=== PATIENT | female | born 1990 | race Caucasian/White ===

== ENCOUNTER 2018-08-26 14:23 | Emergency (ER) | payer SELFPAY ==
[2018-08-26 15:18] LABS: Absolute Lymphocytes (CBC) 1.8 K/uL (0.7-4.9); Absolute Monocytes 0.9 K/uL (0.1-1.3); Absolute Neutrophil 11.1 K/uL (1.8-8.0); Basophils % 0.3 % (0-1.3); Eosinophils % 1.8 % (0-4.4); Hematocrit 42.5 % (36.0-45.0); Lymphocytes % 12.9 % (15.3-44.8); MPV 8.7 fL (7.6-11.3); Monocytes % 6.1 % (3.3-12.3); RBC Red Blood Cell Count 4.95 M/uL (3.86-4.86)
[2018-08-26 15:28] LABS: Urine Blood NEGATIVE (NEG); Urine Glucose NEGATIVE (NEG); Urine Protein 1+ (NEG); Urine Specific Gravity 1.025 (1.005-1.030)
[2018-08-26 15:33] LABS: Potassium 3.6 mmol/L (3.5-5.1)
[2018-08-26] MEDS ORDERED: NA CHLORIDE 0.9% 1,000 ML ONE (15:42)
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
[2018-08-26] MEDS ORDERED: KETOROLAC 30 MG/ML INJ ONE (16:38)
== END 2018-08-26 17:13 | disposition home or self-care (01) ==
LOC: ER 14:23
DX: S30.0XXA Contusion of lower back and pelvis, initial encounter (principal); S20.222A Contusion of left back wall of thorax, initial encounter; S10.93XA Contusion of unspecified part of neck, initial encounter; J01.90 Acute sinusitis, unspecified; Y04.2XXA Assault by strike against or bumped into by another person, initial encounter; Y93.89 Activity, other specified; Y92.009 Unspecified place in unspecified non-institutional (private) residence as the place of occurrence of the external cause; Z72.0 Tobacco use
CPT/HCPCS: 36415; 70450; 70491; 71260; 74177; 80048; 81003; 81025; 85025; 86850; 86900; 86901; 96360; 96361; 99284; J7030; Q9967

== ENCOUNTER 2019-03-05 21:51 | Emergency (ER) | payer SELFPAY ==
[2019-03-05] MEDS ORDERED: NA CHLORIDE 0.9% 1,000 ML ONE (23:05)
[2019-03-05] MEDS ORDERED: PROMETHAZINE 25 MG/ML VIAL ONE (23:05)
[2019-03-05 23:14] LABS: Absolute Lymphocytes (CBC) 1.7 K/uL (0.7-4.9); Basophils % 0.4 % (0-1.3); Hematocrit 40.5 % (36.0-45.0); Lymphocytes % 25.6 % (15.3-44.8); MPV 9.4 fL (7.6-11.3); RBC Red Blood Cell Count 4.68 M/uL (3.86-4.86)
[2019-03-05 23:35] LABS: Bilirubin Direct 0.1 mg/dL (0-0.2); Bilirubin Total 0.3 mg/dL (0.2-1.0); Potassium 3.3 mmol/L (3.5-5.1); Protein, Total 7.7 g/dL (6.4-8.2)
[2019-03-06] MEDS ORDERED: ONDANSETRON 4 MG/2 ML VIAL ONE (00:15)
[2019-03-06 00:33] LABS: Urine Blood NEGATIVE (NEG); Urine Glucose NEGATIVE (NEG); Urine Protein NEGATIVE (NEG); Urine Specific Gravity 1.015 (1.005-1.030); Urine pH 5.5 (5.0-7.0)
[2019-03-06 00:46] LABS: Urine Bacteria 20-50 /HPF (<20); Urine Culture Reflex Order NOT NEEDED; Urine RBC NONE SEEN /HPF (NONE SEEN)
[2019-03-06] MEDS ORDERED: CEFTRIAXONE/SWI 1gm 1 GM/10 ML SYR ONE (00:58)
--- NOTE | 2019-03-06 01:05 | ER ---
Nurse's Notes [facility] Name: Mary Avina Age: 28 yrs Sex: Female : 1990 Arrival Date: 03/05/2019 Time: 21:54 Bed 24 Private MD: Diagnosis: Nausea and vomiting;Diarrhea, unspecified;Urinary tract infection, site not specified Presentation: 03/05 22:19 Presenting complaint: Patient states: Vomiting and diarrhea for the past 2 weeks that aj1 got worse today. Patient reports poor appetite. Reports cramping abdominal pain. Denies fever. Transition of care: patient was not received from another setting of care. Onset of symptoms was 2018. Risk Assessment: Do you want to hurt yourself or someone else? Patient reports no desire to harm self or others. Initial Sepsis Screen: Does the patient meet any 2 criteria? No. Patient's initial sepsis screen is negative. Does the patient have a suspected source of infection? No. Patient's initial sepsis screen is negative. Care prior to arrival: None. 22:19 Method Of Arrival: Ambulatory [facility] 22:19 Acuity: VIANNEY 3 aj1 Triage Assessment: 22:20 General: Appears in no apparent distress. comfortable, Behavior is calm, cooperative, aj1 appropriate for age. Pain: Complains of pain in abdomen. Neuro: Level of Consciousness is awake, alert, obeys commands. Cardiovascular: Patient's skin is warm and dry. Respiratory: Airway is patent Respiratory effort is even, unlabored, Respiratory pattern is regular, symmetrical. GI: Reports diarrhea, nausea, vomiting. 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 - Social history:: Smoking status: Patient uses tobacco products, smokes one-half pack cigarettes per day. - Ebola Screening: : Patient denies travel to an Ebola-affected area in the 21 days before illness onset. Screenin:00 Abuse screen: Denies threats or abuse. Denies injuries from another. Nutritional wh screening: No deficits noted. Tuberculosis screening: No symptoms or risk factors identified. Fall Risk None identified. Assessment: 23:00 General: Appears in no apparent distress. Behavior is calm, cooperative, appropriate wh for age. Pain: Complains of pain in suprapubic area Pain does not radiate. Pain currently is 3 out of 10 on a pain scale. Quality of pain is described as crampy, Pain began 2-3 days ago. Neuro: Level of Consciousness is awake, alert, obeys commands. Cardiovascular: Capillary refill < 3 seconds. Respiratory: Airway is patent Respiratory effort is even, unlabored, Respiratory pattern is regular, symmetrical. Respiratory: Breath sounds are clear bilaterally. GI: Abdomen is flat, non-distended, Bowel sounds present X 4 quads. Abd is soft and non tender X 4 quads. : No signs and/or symptoms were reported regarding the genitourinary system. EENT: No signs and/or symptoms were reported regarding the EENT system. Derm: Skin is intact, is healthy with good turgor, Skin is pink, warm \T\ dry. normal. Musculoskeletal: Circulation, motion, and sensation intact. 03/06 00:20 Reassessment: Patient appears in no apparent distress at this time. No changes from previously documented assessment. Patient and/or family updated on plan of care and expected duration. Pain level reassessed. Patient is alert, oriented x 3, equal unlabored respirations, skin warm/dry/pink. 01:44 Reassessment: Patient appears in no apparent distress at this time. No changes from previously documented assessment. Patient and/or family updated on plan of care and expected duration. Pain level reassessed. Patient is alert, oriented x 3, equal unlabored respirations, skin warm/dry/pink. Patient states feeling better. Patient states symptoms have improved. Vital Signs: 03/05 22:20 BP 114 / 81; Pulse 79; Resp 16; Temp 99.2; Pulse Ox 100% on R/A; Weight 56.7 kg (R); aj1 Height 5 ft. 3 in. (160.02 cm) (R); Pain 5/10; 23:00 BP 113 / 79; Pulse 71; Resp 15; Pulse Ox 100% on R/A; rv 03/06 00:00 BP 103 / 76; Pulse 74; Resp 15; Pulse Ox 100% on R/A; rv 01:00 BP 102 / 72; Pulse 72; Resp 14; Pulse Ox 100% on R/A; rv 03/05 22:20 Body Mass Index 22.14 (56.70 kg, 160.02 cm) [facility] ED Course: 03/05 21:54 Patient arrived in ED. mr 21:54 Ibis [facility]DASH [facility] snw 21:54 Emery Potts MD is Attending Physician. snw 22:20 Triage completed. aj 22:20 Arm band placed on Patient placed in an exam room. 1 22:30 Alexey Rodrigez, KRYSTINA is Primary Nurse. rv 23:00 Patient has correct armband on for positive identification. Bed in low position. Call light in reach. Side rails up X 1. Pulse ox on. NIBP on. 23:20 Inserted saline lock: 22 gauge in right antecubital area, using aseptic technique. Blood collected. 03/06 01:46 No provider procedures requiring assistance completed. IV discontinued, intact, bleeding controlled, No redness/swelling at site. Administered Medications: 03/05 23:30 Drug: Phenergan 12.5 mg Route: IVP; Site: right antecubital; 03/06 01:48 Follow up: Response: No adverse reaction; Nausea is decreased 03/05 23:31 Drug: NS 0.9% 1000 ml Route: IV; Rate: 1 bolus; Site: right antecubital; 03/06 01:48 Follow up: Response: No adverse reaction; IV Status: Completed infusion 00:28 Drug: Zofran 4 mg Route: IVP; Site: right antecubital; rv 01:47 Follow up: Response: No adverse reaction; Nausea is decreased 01:07 Drug: Rocephin 1 grams Route: IV; Rate: calculated rate; Site: right antecubital; 01:47 Follow up: Response: No adverse reaction; IV Status: Completed infusion Outcome: 01:03 Discharge ordered by . snw 01:46 Discharged to home ambulatory. 01:46 Condition: good 01:46 Discharge instructions given to patient, Instructed on discharge instructions, follow up and referral plans. medication usage, POC UTI, dehydration, nausea and vomiting Demonstrated understanding of instructions, follow-up care, medications, POC Prescriptions given X 3. 01:49 Patient left the ED. Signatures: Kaya Sheridan, RN RN aj1 Ibis Ojeda, POTATO SPOTTER-C POTATO SPOTTER-Csnw Jules Judie mr Esthela, Fernanda Alexey Rodrigez RN RN rv
--- NOTE | 2019-03-06 01:06 | EDPHYS ---
Physician Documentation [facility] Name: Mary Avina Age: 28 yrs Sex: Female : 1990 Arrival Date: 03/05/2019 Time: 21:54 Bed 24 Private MD: ED Physician Emery Potts HPI: 03/06 00:10 This 28 yrs old Female presents to ER via Ambulatory with complaints of snw Vomiting/Diarrhea. 00:10 The patient presents to the emergency department with nausea, vomiting, diarrhea. snw Onset: The symptoms/episode began/occurred suddenly, 2 day(s) ago, and became persistent. Possible causes: unknown. The symptoms are aggravated by nothing. The symptoms are alleviated by nothing. Associated signs and symptoms: Pertinent positives: abdominal pain, diarrhea, nausea, vomiting. Severity of symptoms: At their worst the symptoms were moderate severe. It is unknown whether or not the patient has had similar symptoms in the past. It is unknown whether or not the patient has recently seen a physician. 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 - Social history:: Smoking status: Patient uses tobacco products, smokes one-half pack cigarettes per day. - Ebola Screening: : Patient denies travel to an Ebola-affected area in the 21 days before illness onset. ROS: 03/06 00:10 Constitutional: Negative for fever, chills, and weight loss, Eyes: Negative for injury, snw pain, redness, and discharge, ENT: Negative for injury, pain, and discharge, Neck: Negative for injury, pain, and swelling, Cardiovascular: Negative for chest pain, palpitations, and edema, Respiratory: Negative for shortness of breath, cough, wheezing, and pleuritic chest pain, Abdomen/GI: Positive for abdominal pain, nausea, vomiting, diarrhea, No constipation, Back: Negative for injury and pain, : Negative for injury, bleeding, discharge, and swelling, MS/Extremity: Negative for injury and deformity, Skin: Negative for injury, rash, and discoloration, Neuro: Negative for headache, weakness, numbness, tingling, and seizure, Psych: Negative for depression, anxiety, suicide ideation, homicidal ideation, and hallucinations. Exam: 00:07 Constitutional: This is a well developed, well nourished patient who is awake, alert, snw and in no acute distress. Head/Face: Normocephalic, atraumatic. Eyes: Pupils equal round and reactive to light, extra-ocular motions intact. Lids and lashes normal. Conjunctiva and sclera are non-icteric and not injected. Cornea within normal limits. Periorbital areas with no swelling, redness, or edema. ENT: Nares patent. No nasal discharge, no septal abnormalities noted. Tympanic membranes are normal and external auditory canals are clear. Oropharynx with no redness, swelling, or masses, exudates, or evidence of obstruction, uvula midline. Mucous membranes moist. Neck: Trachea midline, no thyromegaly or masses palpated, and no cervical lymphadenopathy. Supple, full range of motion without nuchal rigidity, or vertebral point tenderness. No Meningismus. Chest/axilla: Normal chest wall appearance and motion. Nontender with no deformity. No lesions are appreciated. Cardiovascular: Regular rate and rhythm with a normal S1 and S2. No gallops, murmurs, or rubs. Normal PMI, no JVD. No pulse deficits. Respiratory: Lungs have equal breath sounds bilaterally, clear to auscultation and percussion. No rales, rhonchi or wheezes noted. No increased work of breathing, no retractions or nasal flaring. Abdomen/GI: Soft, mildly tender, with hyperactive bowel sounds. No distension or tympany. No guarding or rebound. Back: No spinal tenderness. No costovertebral tenderness. Full range of motion. Skin: Warm, dry with normal turgor. Normal color with no rashes, no lesions, and no evidence of cellulitis. MS/ Extremity: Pulses equal, no cyanosis. Neurovascular intact. Full, normal range of motion. Tenderness to bilateral knees with mild contusions Neuro: Awake and alert, GCS 15, oriented to person, place, time, and situation. Cranial nerves II-XII grossly intact. Motor strength 5/5 in all extremities. Sensory grossly intact. Cerebellar exam normal. Normal gait. Psych: Awake, alert, with orientation to person, place and time. Behavior, mood, and affect are within normal limits. Vital Signs: 03/05 22:20 BP 114 / 81; Pulse 79; Resp 16; Temp 99.2; Pulse Ox 100% on R/A; Weight 56.7 kg (R); aj1 Height 5 ft. 3 in. (160.02 cm) (R); Pain 5/10; 23:00 BP 113 / 79; Pulse 71; Resp 15; Pulse Ox 100% on R/A; rv 03/06 00:00 BP 103 / 76; Pulse 74; Resp 15; Pulse Ox 100% on R/A; rv 01:00 BP 102 / 72; Pulse 72; Resp 14; Pulse Ox 100% on R/A; rv 03/05 22:20 Body Mass Index 22.14 (56.70 kg, 160.02 cm) aj1 MDM: 03/05 22:26 Patient medically screened. snw 03/06 01:27 Data reviewed: vital signs, nurses notes. Data interpreted: Pulse oximetry: on room air snw is 100 %. Interpretation: normal. Counseling: I had a detailed discussion with the patient and/or guardian regarding: the historical points, exam findings, and any diagnostic results supporting the discharge/admit diagnosis, lab results, radiology results, the need for outpatient follow up, for definitive care, to return to the emergency department if symptoms worsen or persist or if there are any questions or concerns that arise at home. Response to treatment: the patient's symptoms have markedly improved after treatment. 03/05 22:35 Order name: Basic Metabolic Panel; Complete Time: 23:39 snw 03/05 22:35 Order name: CBC with Diff; Complete Time: 23:27 snw 03/05 22:35 Order name: Creatinine for Radiology; Complete Time: 23:48 snw 03/05 22:35 Order name: Hepatic Function; Complete Time: 23:39 snw 03/05 22:35 Order name: Lipase; Complete Time: 23:39 snw 03/05 22:35 Order name: Urine Culture snw 03/05 22:35 Order name: Urine Microscopic Only; Complete Time: 00:49 snw 03/06 00:19 Order name: Urine Dipstick--Ancillary (enter results) em1 03/06 00:19 Order name: Urine --Ancillary (enter results) em1 03/06 00:34 Order name: Urine --Ancillary EDMS 03/06 00:34 Order name: Urine Dipstick-Ancillary [facility] 03/05 22:35 Order name: Labs collected and sent; Complete Time: 23:31 snw 03/05 22:35 Order name: Urine Test (obtain specimen); Complete Time: 00:18 snw 03/05 22:35 Order name: Urine Dipstick-Ancillary (obtain specimen); Complete Time: 00:18 snw Administered Medications: 03/05 23:30 Drug: Phenergan 12.5 mg Route: IVP; Site: right antecubital; 03/06 01:48 Follow up: Response: No adverse reaction; Nausea is decreased 03/05 23:31 Drug: NS 0.9% 1000 ml Route: IV; Rate: 1 bolus; Site: right antecubital; 03/06 01:48 Follow up: Response: No adverse reaction; IV Status: Completed infusion 00:28 Drug: Zofran 4 mg Route: IVP; Site: right antecubital; 01:47 Follow up: Response: No adverse reaction; Nausea is decreased 01:07 Drug: Rocephin 1 grams Route: IV; Rate: calculated rate; Site: right antecubital; 01:47 Follow up: Response: No adverse reaction; IV Status: Completed infusion Disposition: 03/06/19 01:03 Discharged to Home. Impression: Nausea and vomiting, Diarrhea, unspecified, Urinary tract infection, site not specified. - Condition is Stable. - Discharge Instructions: Food Choices to Help Relieve Diarrhea, Adult, Diarrhea, Adult, Nausea and Vomiting, Adult, Urinary Tract Infection, Adult, Rehydration, Adult. - Prescriptions for Zofran 4 mg Oral Tablet - take 1 tablet by ORAL route every 12 hours As needed; 6 tablet. Macrobid 100 mg Oral Capsule - take 1 capsule by ORAL route every 12 hours for 10 days; 20 capsule. promethazine 25 mg Oral Tablet - take 1 tablet by ORAL route every 6 hours As needed; 20 tablet. - Work release form, Medication Reconciliation Form, Thank You Letter, Antibiotic Education, Prescription Opioid Use form. - Follow up: Private Physician; When: 2 - 3 days; Reason: Recheck today's complaints, Continuance of care, Re-evaluation by your physician. Follow up: Emergency Department; When: As needed; Reason: Worsening of condition. Signatures: Dispatcher [employer] EDMS Kaya Sheridan RN RN aj1 Ibis Ojeda, [employer]-C COMPUTER INSTALLER-Csnw Esthela Fernanda Alexey Blanco RN RN rv Corrections: (The following items were deleted from the chart) 00:09 00:07 Constitutional: This is a well developed, well nourished patient who is awake, snw alert, and in no acute distress. Head/Face: Normocephalic, atraumatic. Eyes: Pupils equal round and reactive to light, extra-ocular motions intact. Lids and lashes normal. Conjunctiva and sclera are non-icteric and not injected. Cornea within normal limits. Periorbital areas with no swelling, redness, or edema. ENT: Nares patent. No nasal discharge, no septal abnormalities noted. Tympanic membranes are normal and external auditory canals are clear. Oropharynx with no redness, swelling, or masses, exudates, or evidence of obstruction, uvula midline. Mucous membranes moist. Neck: Trachea midline, no thyromegaly or masses palpated, and no cervical lymphadenopathy. Supple, full range of motion without nuchal rigidity, or vertebral point tenderness. No Meningismus. Chest/axilla: Normal chest wall appearance and motion. Nontender with no deformity. No lesions are appreciated. Cardiovascular: Regular rate and rhythm with a normal S1 and S2. No gallops, murmurs, or rubs. Normal PMI, no JVD. No pulse deficits. Respiratory: Lungs have equal breath sounds bilaterally, clear to auscultation and percussion. No rales, rhonchi or wheezes noted. No increased work of breathing, no retractions or nasal flaring. Abdomen/GI: Soft, mildly tender, with hyperactive bowel sounds. No distension or tympany. No guarding or rebound. Back: No spinal tenderness. No costovertebral tenderness. Full range of motion. Skin: Warm, dry with normal turgor. Normal color with no rashes, no lesions, and no evidence of cellulitis. MS/ Extremity: Pulses equal, no cyanosis. Neurovascular intact. Full, normal range of motion. Neuro: Awake and alert, GCS 15, oriented to person, place, time, and situation. Cranial nerves II-XII grossly intact. Motor strength 5/5 in all extremities. Sensory grossly intact. Cerebellar exam normal. Normal gait. Psych: Awake, alert, with orientation to person, place and time. Behavior, mood, and affect are within normal limits. snw 00:15 00:10 Constitutional: Negative for fever, chills, and weight loss, Eyes: Negative for snw injury, pain, redness, and discharge, ENT: Negative for injury, pain, and discharge, Neck: Negative for injury, pain, and swelling, Cardiovascular: Negative for chest pain, palpitations, and edema, Respiratory: Negative for shortness of breath, cough, wheezing, and pleuritic chest pain, Abdomen/GI: Negative for abdominal pain, nausea, vomiting, diarrhea, and constipation, Back: Negative for injury and pain, : Negative for injury, bleeding, discharge, and swelling, Skin: Negative for injury, rash, and discoloration, Neuro: Negative for headache, weakness, numbness, tingling, and seizure, Psych: Negative for depression, anxiety, suicide ideation, homicidal ideation, and hallucinations, snw 00:15 00:10 MS/extremity: Positive for contusion, pain, of the bilateral knees, snw snw 01:49 01:03 03/06/2019 01:03 Discharged to Home. Impression: Nausea and vomiting; Diarrhea, wh unspecified; Urinary tract infection, site not specified. Condition is Stable. Forms are Medication Reconciliation Form, Thank You Letter, Antibiotic Education, Prescription Opioid Use. Follow up: Private Physician; When: 2 - 3 days; Reason: Recheck today's complaints, Continuance of care, Re-evaluation by your physician. Follow up: Emergency Department; When: As needed; Reason: Worsening of condition. snw
[2019-03-06 13:03] VITALS: TEMP 99.2; O2SAT 100
[2019-03-06 13:06] VITALS: BP 102/72
== END 2019-03-06 01:49 | disposition home or self-care (01) ==
LOC: ER 21:51
DX: R19.7 Diarrhea, unspecified (principal); N39.0 Urinary tract infection, site not specified; F17.210 Nicotine dependence, cigarettes, uncomplicated
CPT/HCPCS: 36415; 80048; 80076; 81003; 81015; 81025; 83690; 85025; 87086; 87088; 96361; 96365; 96375; 99284; J0696; J2405; J2550; J7030

== ENCOUNTER 2019-04-26 12:46 | Emergency (ER) | payer SELFPAY ==
[2019-04-26] MEDS ORDERED: IBUPROFEN 200 MG TAB PO ONE (13:43)
[2019-04-26] MEDS ORDERED: IBUPROFEN 400 MG TAB ONE (13:43)
--- NOTE | 2019-04-26 14:26 | EDPHYS ---
Physician Documentation [facility] Name: Mary Avina Age: 28 yrs Sex: Female : 1990 Arrival Date: 04/26/2019 Time: 12:48 Bed 15 Private MD: ED Physician Jeovany Laguna HPI: 04/26 14:25 This 28 yrs old Female presents to ER via Ambulatory with complaints of Flu kb Symptoms. 14:25 The patient or guardian reports cough, that is intermittent, described as mild, flu kb symptoms, low-grade fever, myalgias. Onset: The symptoms/episode began/occurred 3 day(s) ago. Severity of symptoms: At their worst the symptoms were moderate, in the emergency department the symptoms are unchanged. Modifying factors: The symptoms are alleviated by nothing, the symptoms are aggravated by nothing. Associated signs and symptoms: Pertinent positives: fever, sore throat. The patient has not experienced similar symptoms in the past. The patient has not recently seen a physician. 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 - Social history:: Smoking status: Patient uses tobacco products, smokes one-half pack cigarettes per day. - Ebola Screening: : Patient denies exposure to infectious person Patient denies travel to an Ebola-affected area in the 21 days before illness onset. ROS: 14:24 Neck: Negative for injury, pain, and swelling, Cardiovascular: Negative for chest pain, kb palpitations, and edema, Abdomen/GI: Negative for abdominal pain, nausea, vomiting, diarrhea, and constipation, Back: Negative for injury and pain, MS/Extremity: Negative for injury and deformity, Skin: Negative for injury, rash, and discoloration, Neuro: Negative for headache, weakness, numbness, tingling, and seizure. 14:24 Constitutional: Positive for body aches, chills, fatigue, fever, malaise. 14:24 ENT: Positive for sore throat. 14:24 Respiratory: Positive for cough. kb Exam: 14:24 Constitutional: This is a well developed, well nourished patient who is awake, alert, kb and in no acute distress. Head/Face: Normocephalic, atraumatic. ENT: Nares patent. No nasal discharge, no septal abnormalities noted. Tympanic membranes are normal and external auditory canals are clear. Oropharynx with no redness, swelling, or masses, exudates, or evidence of obstruction, uvula midline. Mucous membranes moist. Neck: Trachea midline, no thyromegaly or masses palpated, and no cervical lymphadenopathy. Supple, full range of motion without nuchal rigidity, or vertebral point tenderness. No Meningismus. Chest/axilla: Normal chest wall appearance and motion. Nontender with no deformity. No lesions are appreciated. Cardiovascular: Regular rate and rhythm with a normal S1 and S2. No gallops, murmurs, or rubs. Normal PMI, no JVD. No pulse deficits. Respiratory: Lungs have equal breath sounds bilaterally, clear to auscultation and percussion. No rales, rhonchi or wheezes noted. No increased work of breathing, no retractions or nasal flaring. Abdomen/GI: Soft, non-tender, with normal bowel sounds. No distension or tympany. No guarding or rebound. No evidence of tenderness throughout. Skin: Warm, dry with normal turgor. Normal color with no rashes, no lesions, and no evidence of cellulitis. MS/ Extremity: Pulses equal, no cyanosis. Neurovascular intact. Full, normal range of motion. Neuro: Awake and alert, GCS 15, oriented to person, place, time, and situation. Cranial nerves II-XII grossly intact. Motor strength 5/5 in all extremities. Sensory grossly intact. Cerebellar exam normal. Normal gait. Vital Signs: 13:16 BP 102 / 78; Pulse 104; Resp 16; Temp 100.7(TE); Pulse Ox 99% on R/A; Weight 54.43 kg; ss Height 5 ft. 3 in. (160.02 cm); Pain 5/10; 14:45 BP 111 / 76; Pulse 99; Resp 17 S; Temp 98.8(O); Pulse Ox 100% on R/A; ca1 13:16 Body Mass Index 21.26 (54.43 kg, 160.02 cm) MDM: 13:16 Patient medically screened. kb 14:23 Data reviewed: vital signs, nurses notes. Data interpreted: Pulse oximetry: on room air kb is 99 %. Interpretation: normal. Counseling: I had a detailed discussion with the patient and/or guardian regarding: the historical points, exam findings, and any diagnostic results supporting the discharge/admit diagnosis, lab results, the need for outpatient follow up, a family practitioner, to return to the emergency department if symptoms worsen or persist or if there are any questions or concerns that arise at home. 04/26 13:16 Order name: Flu; Complete Time: 14:07 kb 04/26 13:16 Order name: Strep; Complete Time: 14:07 kb Administered Medications: 13:40 Drug: Ibuprofen 600 mg Route: PO; ca1 14:10 Follow up: Response: No adverse reaction ca1 Disposition: 04/27 07:27 Co-signature as Attending Physician, Jeovany Laguna MD I agree with the assessment and deric plan of care. Disposition: 04/26/19 14:25 Discharged to Home. Impression: Acute upper respiratory infection, unspecified. - Condition is Stable. - Discharge Instructions: Upper Respiratory Infection, Adult, [id number], Viral Respiratory Infection, [id number]. - Medication Reconciliation Form, Thank You Letter, Antibiotic Education, Prescription Opioid Use, Work release form form. - Follow up: Emergency Department; When: As needed; Reason: Worsening of condition. Follow up: Private Physician; When: 2 - 3 days; Reason: Recheck today's complaints, Continuance of care, Re-evaluation by your physician. Signatures: Dispatcher [employer] Kamila Maldonado, PRINTING ROLLER HANDLER-C PRINTING ROLLER HANDLER-Jeovany Barajas MD MD cha Smirch, Shelby, RN RN ss Татьяна Moscoso RN RN ca1 Corrections: (The following items were deleted from the chart) 04/26 14:24 14:24 Neck: Negative for injury, pain, and swelling, Cardiovascular: Negative for chest kb pain, palpitations, and edema, Respiratory: Negative for shortness of breath, cough, wheezing, and pleuritic chest pain, Abdomen/GI: Negative for abdominal pain, nausea, vomiting, diarrhea, and constipation, Back: Negative for injury and pain, MS/Extremity: Negative for injury and deformity, Skin: Negative for injury, rash, and discoloration, Neuro: Negative for headache, weakness, numbness, tingling, and seizure, kb 14:46 14:25 04/26/2019 14:25 Discharged to Home. Impression: Acute upper respiratory ca1 infection, unspecified. Condition is Stable. Forms are Medication Reconciliation Form, Thank You Letter, Antibiotic Education, Prescription Opioid Use. Follow up: Emergency Department; When: As needed; Reason: Worsening of condition. Follow up: Private Physician; When: 2 - 3 days; Reason: Recheck today's complaints, Continuance of care, Re-evaluation by your physician. kb
--- NOTE | 2019-04-26 14:26 | ER ---
Nurse's Notes [facility] Name: Mary Avina Age: 28 yrs Sex: Female : 1990 Arrival Date: 04/26/2019 Time: 12:48 Bed 15 Private MD: Diagnosis: Acute upper respiratory infection, unspecified Presentation: 04/26 13:16 Presenting complaint: Patient states: cough, intermittent fever and now body aches that ss began 3-4 days ago. Motrin last taken yesteray. Transition of care: patient was not received from another setting of care. Onset of symptoms was April 22, 2019. Risk Assessment: Do you want to hurt yourself or someone else? Patient reports no desire to harm self or others. Initial Sepsis Screen: Does the patient meet any 2 criteria? HR > 90 bpm. Does the patient have a suspected source of infection? No. Patient's initial sepsis screen is negative. Care prior to arrival: None. 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 - Social history:: Smoking status: Patient uses tobacco products, smokes one-half pack cigarettes per day. - Ebola Screening: : Patient denies exposure to infectious person Patient denies travel to an Ebola-affected area in the 21 days before illness onset. Screenin:25 Abuse screen: Denies threats or abuse. Denies injuries from another. Nutritional ca1 screening: No deficits noted. Tuberculosis screening: No symptoms or risk factors identified. Fall Risk None identified. Assessment: 13:25 General: Appears in no apparent distress. comfortable, Behavior is calm, cooperative, ca1 appropriate for age, Reports fever for > 3 days. Pain: Complains of pain in all over Pain currently is 5 out of 10 on a pain scale. Neuro: Level of Consciousness is awake, alert, obeys commands, Oriented to person, place, time, situation, Appropriate for age. Cardiovascular: Heart tones S1 S2 present Capillary refill < 3 seconds Patient's skin is warm and dry. Pulses are all present. Respiratory: Reports cough that is productive, since 4 days ago Airway is patent Respiratory effort is even, unlabored, Respiratory pattern is regular, symmetrical, Breath sounds are clear bilaterally. GI: Abdomen is flat, non-distended, Bowel sounds present X 4 quads. Abd is soft and non tender X 4 quads. : No deficits noted. No signs and/or symptoms were reported regarding the genitourinary system. EENT: Reports nasal congestion. Derm: Skin is intact, is healthy with good turgor, Skin is pink, warm \T\ dry. Musculoskeletal: Circulation, motion, and sensation intact. Capillary refill < 3 seconds, Range of motion: intact in all extremities. 14:45 Reassessment: Patient appears in no apparent distress at this time. Patient and/or ca1 family updated on plan of care and expected duration. Pain level reassessed. Patient is alert, oriented x 3, equal unlabored respirations, skin warm/dry/pink. Vital Signs: 13:16 BP 102 / 78; Pulse 104; Resp 16; Temp 100.7(TE); Pulse Ox 99% on R/A; Weight 54.43 kg; ss Height 5 ft. 3 in. (160.02 cm); Pain 5/10; 14:45 BP 111 / 76; Pulse 99; Resp 17 S; Temp 98.8(O); Pulse Ox 100% on R/A; ca1 13:16 Body Mass Index 21.26 (54.43 kg, 160.02 cm) ED Course: 12:48 Patient arrived in ED. mr 12:52 Kamila [facility]ila [facility]C [facility] kb 12:52 Jeovany Laguna MD is Attending Physician. kb 13:16 Arm band placed on left wrist. ss 13:17 Triage completed. ss 13:25 Patient has correct armband on for positive identification. Bed in low position. Call ca1 light in reach. Side rails up X 1. Pulse ox on. NIBP on. Warm blanket given. 13:25 No provider procedures requiring assistance completed. Patient did not have IV access ca1 during this emergency room visit. 13:33 Flu and/or RSV swab sent to lab. Strep swab sent to lab. jb1 13:37 Татьяна Moscoso, KRYSTINA is Primary Nurse. ca1 Administered Medications: 13:40 Drug: Ibuprofen 600 mg Route: PO; ca1 14:10 Follow up: Response: No adverse reaction ca1 Outcome: 14:25 Discharge ordered by MD. gandara 14:46 Discharged to home ambulatory. ca1 14:46 Condition: stable 14:46 Discharge instructions given to patient, Instructed on discharge instructions, follow up and referral plans. Demonstrated understanding of instructions, follow-up care. 14:46 Patient left the ED. ca1 Signatures: Elías Dugan jb1 Kamila Aguila, SPORTS LEADERSHIP INSTRUCTOR-C [employer]-Judie Muse mr Winnie Vanegas, RN RN ss Татьяна Moscoso RN RN ca1
[2019-04-26 15:07] VITALS: BP 111/76; TEMP 98.8; O2SAT 100
== END 2019-04-26 14:46 | disposition home or self-care (01) ==
LOC: ER 12:46
DX: J06.9 Acute upper respiratory infection, unspecified (principal); F17.210 Nicotine dependence, cigarettes, uncomplicated
CPT/HCPCS: 87070; 87081; 87804; 99283

== ENCOUNTER 2020-04-26 16:47 | Emergency (ER) | payer SELFPAY ==
[2020-04-26] MEDS ORDERED: PROMETHAZINE 25 MG TABLET ONE (17:40)
--- NOTE | 2020-04-26 17:55 | EDPHYS ---
Physician Documentation [facility] Name: Mary Avina Age: 29 yrs Sex: Female : 1990 Arrival Date: 04/26/2020 Time: 16:50 Bed 19 Private MD: ED Physician Romeo Ellington HPI: 04/26 17:25 This 29 yrs old Female presents to ER via Ambulatory with complaints of jmm Anxiety. 17:25 The patient presents to the emergency department with anxiety. Onset: The jmm symptoms/episode began/occurred last week. Past psychiatric history: Prior diagnosis: depression, Psychiatric medications include: seroquel. Associated signs and symptoms: Pertinent positives; anxiety, Pertinent negatives: fever, hallucinations, paranoia, shortness of breath. This is a 29 year old female with no chronic medical conditions that presents to the ED with complaints of worsening anxiety. Patient states her psychiatrist is out of town and unable to prescribe new medications. . 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 - Social history:: Smoking status: Patient reports the use of cigarette tobacco products, smokes one-half pack cigarettes per day. ROS: 17:25 Constitutional: Negative for fever, chills, and weight loss, Cardiovascular: Negative jmm for chest pain, palpitations, and edema, Respiratory: Negative for shortness of breath, cough, wheezing, and pleuritic chest pain, Abdomen/GI: Negative for abdominal pain, nausea, vomiting, diarrhea, and constipation. 17:25 Psych: Positive for anxiety. 17:25 All other systems are negative. Exam: 17:25 Constitutional: This is a well developed, well nourished patient who is awake, alert, jmm and in no acute distress. Head/Face: atraumatic. Eyes: EOMI, no conjunctival erythema appreciated ENT: Moist Mucus Membranes Neck: Trachea midline, Supple Chest/axilla: Normal chest wall appearance and motion. Cardiovascular: Regular rate and rhythm. No edema appreciated Respiratory: Normal respirations, no respiratory distress appreciated Abdomen/GI: Non distended, soft Back: Normal ROM Skin: General appearance color normal MS/ Extremity: Moves all extremities, no obvious deformities appreciated, no edema noted to the lower extremities Neuro: Awake and alert, normal gait 17:25 Psych: Behavior/mood is pleasant, cooperative, anxious. Vital Signs: 16:56 BP 128 / 86; Pulse 93; Resp 17 S; Temp 98.8(O); Pulse Ox 100% on R/A; Weight 47.63 kg jd3 (R); Height 5 ft. 3 in. (160.02 cm) (R); Pain 0/10; 17:10 BP 127 / 96; Pulse 91; Resp 20; Pulse Ox 100% on R/A; vg1 17:30 BP 128 / 97; Pulse 86; Resp 18; Pulse Ox 100% on R/A; vg1 16:56 Body Mass Index 18.60 (47.63 kg, 160.02 cm) jd3 MDM: 17:53 Data reviewed: vital signs, nurses notes. Counseling: I had a detailed discussion with jennifer the patient and/or guardian regarding: the historical points, exam findings, and any diagnostic results supporting the discharge/admit diagnosis, the need for outpatient follow up, to return to the emergency department if symptoms worsen or persist or if there are any questions or concerns that arise at home. 17:54 Patient medically screened. jennifer 20:39 ED course: SYmptoms were alleviated in the ED. A short prn course of medication deanna prescribed. Patient advised to follow up with psychiatry for reevaluation and otherwise given strict return precautions. Patient understood and agrees with the plan of care. . Administered Medications: 17:34 Drug: Promethazine 50 mg Route: PO; vg1 17:56 Follow up: Response: No adverse reaction; Anxiety decreased; Nausea is decreased vg1 Disposition: 04/26/20 17:54 Discharged to Home. Impression: Anxiety disorder, unspecified. - Condition is Stable. - Discharge Instructions: Generalized Anxiety Disorder. - Prescriptions for Klonopin 0.5 mg Oral Tablet - take 1 tablet by ORAL route every 12 hours As needed; 10 tablet. - Medication Reconciliation Form, Thank You Letter, Antibiotic Education, Prescription Opioid Use form. - Follow up: Private Physician; When: 2 - 3 days; Reason: Recheck today's complaints, Continuance of care, Re-evaluation by your physician. Addendum: 04/28/2020 14:35 Co-signature as Attending Physician, Romeo Ellington MD I agree with the assessment and k dr plan of care. Signatures: Romeo Ellington MD MD [facility] Sal Robertson PA PA jmm Davies, Jonathon RN RN jd3 Vanessa Hubbard RN RN vg1 Corrections: (The following items were deleted from the chart) 04/26 18:02 17:54 04/26/2020 17:54 Discharged to Home. Impression: Anxiety disorder, unspecified. vg1 Condition is Stable. Forms are Medication Reconciliation Form, Thank You Letter, Antibiotic Education, Prescription Opioid Use. Follow up: Private Physician; When: 2 - 3 days; Reason: Recheck today's complaints, Continuance of care, Re-evaluation by your physician. jennifer
--- NOTE | 2020-04-26 17:55 | ER ---
Nurse's Notes [facility] Name: Mary Avina Age: 29 yrs Sex: Female : 1990 Arrival Date: 04/26/2020 Time: 16:50 Bed 19 Private MD: Diagnosis: Anxiety disorder, unspecified Presentation: 04/26 16:52 Chief complaint: Patient states: "I have I have a regular doctor for my depression and jd3 anxiety, I was supposed to go to see him, but he is away on a family emergency. so I called his office and they said to come here and that maybe y'all can help me.". Coronavirus screen: At this time, the client does not indicate any symptoms associated with coronavirus-19. Ebola Screen: Patient negative for fever greater than or equal to 101.5 degrees Fahrenheit, and additional compatible Ebola Virus Disease symptoms. Initial Sepsis Screen: Does the patient meet any 2 criteria? No. Patient's initial sepsis screen is negative. Does the patient have a suspected source of infection? No. Patient's initial sepsis screen is negative. Risk Assessment: Do you want to hurt yourself or someone else? Patient reports no desire to harm self or others. Onset of symptoms was April 25, 2020. 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 - Social history:: Smoking status: Patient reports the use of cigarette tobacco products, smokes one-half pack cigarettes per day. Screenin:10 Abuse screen: Denies threats or abuse. Nutritional screening: No deficits noted. vg1 Tuberculosis screening: No symptoms or risk factors identified. Fall Risk None identified. Assessment: 17:09 General: Appears uncomfortable, well groomed, Behavior is anxious, crying. General: vg1 Patient states is on Seroquel 50mg and has been on it for about two months, and was suppose to go see her doctor today to get prescribed some medication for her anxiety and the doctor is out of town; the doctor office told her to come to ED to see if could get some medication until her PCP returns. . Pain: Denies pain. Neuro: Level of Consciousness is awake, alert, Oriented to person, place, time, situation. Cardiovascular: Patient's skin is warm and dry. Respiratory: Airway is patent Respiratory effort is even, unlabored, Respiratory pattern is regular, symmetrical. GI: Reports nausea. : No signs and/or symptoms were reported regarding the genitourinary system. EENT: No signs and/or symptoms were reported regarding the EENT system. Derm: Skin is pink, warm \\T\\ dry. Musculoskeletal: Range of motion: intact in all extremities. 17:55 Reassessment: Patient and/or family updated on plan of care and expected duration. Pain vg1 level reassessed. Patient is alert, oriented x 3, equal unlabored respirations, skin warm/dry/pink. Patient states that the nausea has subsided. Stated when she came in her anxiety was about 10/10. After receiving the medication states that anxiety is 6/10. Provider notifed. Vital Signs: 16:56 BP 128 / 86; Pulse 93; Resp 17 S; Temp 98.8(O); Pulse Ox 100% on R/A; Weight 47.63 kg jd3 (R); Height 5 ft. 3 in. (160.02 cm) (R); Pain 0/10; 17:10 BP 127 / 96; Pulse 91; Resp 20; Pulse Ox 100% on R/A; vg1 17:30 BP 128 / 97; Pulse 86; Resp 18; Pulse Ox 100% on R/A; vg1 16:56 Body Mass Index 18.60 (47.63 kg, 160.02 cm) jd3 ED Course: 16:50 Patient arrived in ED. as 16:54 Triage completed. jd3 16:58 Arm band placed on. jd3 16:59 Vanessa Hubbard, KRYSTINA is Primary Nurse. vg1 17:02 Sal Robertson PA is PHCP. jmm 17:02 Romeo Ellington MD is Attending Physician. jmm 17:10 Patient has correct armband on for positive identification. Bed in low position. Call vg1 light in reach. Pulse ox on. NIBP on. Door closed. 18:00 No provider procedures requiring assistance completed. Patient did not have IV access vg1 during this emergency room visit. Administered Medications: 17:34 Drug: Promethazine 50 mg Route: PO; vg1 17:56 Follow up: Response: No adverse reaction; Anxiety decreased; Nausea is decreased vg1 Outcome: 17:54 Discharge ordered by MD. rodriguez 18:00 Discharged to home ambulatory. vg1 18:00 Condition: good 18:00 Discharge instructions given to patient, Instructed on discharge instructions, follow up and referral plans. medication usage, Demonstrated understanding of instructions, follow-up care, medications, Prescriptions given X 1. 18:02 Patient left the ED. vg1 Signatures: Sal Robertson PA PA jmm Martinez, Amelia as Davies, Jonathon, RN RN Vanessa Scherer RN RN vg1 Corrections: (The following items were deleted from the chart) 17:20 17:09 GI: No signs and/or symptoms were reported involving the gastrointestinal system. vg1 vg1
[2020-04-26 18:16] VITALS: TEMP 98.8; O2SAT 100
[2020-04-26 18:19] VITALS: BP 128/97
== END 2020-04-26 18:02 | disposition home or self-care (01) ==
LOC: ER 16:47
DX: F41.8 Other specified anxiety disorders (principal); F17.210 Nicotine dependence, cigarettes, uncomplicated
CPT/HCPCS: 99283; Q0169

== ENCOUNTER 2020-11-19 08:27 | Emergency (ER) | payer SELFPAY ==
--- NOTE | 2020-11-19 09:12 | RAD REPORT ---
EXAM DESCRIPTION: Micaela Single View11/19/2020 8:57 am CLINICAL HISTORY: Cough COMPARISON: none FINDINGS: The lungs appear clear of acute infiltrate. The heart is normal size IMPRESSION: No acute abnormalities displayed
[2020-11-19 09:41] LABS: SARS-COV-2 RT PCR NEGATIVE (NEGATIVE)
--- NOTE | 2020-11-19 10:06 | ER ---
Nurse's Notes [facility] Name: Mary Avina Age: 30 yrs Sex: Female : 1990 Arrival Date: 11/19/2020 Time: 08:31 Bed 14 Private MD: Diagnosis: Acute upper respiratory infection, unspecified Presentation: 11/19 08:40 Chief complaint: Patient states: Diarrhea, cough, SOB, congestion, fever off/on, lost ll1 voice, taste off, sore throat for 1 week. Coronavirus screen: Client denies travel out of the [place] in the last 14 days. congestion, cough unrelated to allergies, diarrhea, difficulty breathing, fatigue, fever, runny nose, shortness of breath, sore throat, loss of taste or smell, Client presents with at least one sign or symptom that may indicate coronavirus-19. Standard/surgical mask placed on the client. Ebola Screen: Patient denies travel to an Ebola-affected area in the 21 days before illness onset. Initial Sepsis Screen: Does the patient meet any 2 criteria? HR > 90 bpm. No. Patient's initial sepsis screen is negative. Does the patient have a suspected source of infection? Yes: Productive cough/pneumonia. Risk Assessment: Do you want to hurt yourself or someone else? Patient reports no desire to harm self or others. Onset of symptoms was November 12, 2020. 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 - Social history:: Smoking status: Patient/guardian denies using tobacco, Stopped _ months ago .5 Smoking status: Reported history of juuling and/or vaping. Patient/guardian denies using tobacco, Stopped _ months ago 1. - Family history:: not pertinent. - Hospitalizations: : No recent hospitalization is reported. Screenin:06 Abuse screen: Denies threats or abuse. Denies injuries from another. Nutritional kg screening: No deficits noted. Tuberculosis screening: No symptoms or risk factors identified. Fall Risk None identified. No fall in past 12 months (0 pts). No secondary diagnosis (0 pts). No IV (0 pts). Ambulatory Aid- None/Bed Rest/Nurse Assist (0 pts). Gait- Normal/Bed Rest/Wheelchair (0 pts) Mental Status- Oriented to own ability (0 pts). Total Edgar Fall Scale indicates No Risk (0-24 pts). Assessment: 09:02 General: Appears in no apparent distress. Behavior is calm, cooperative, appropriate kg for age, quiet. Pain: Complains of pain in chest, abdomen and neck Pain does not radiate. Pain currently is 7 out of 10 on a pain scale. at worst was 8 out of 10 on a pain scale. level that patient reports is acceptable is 4 out of 10 on a pain scale. Quality of pain is described as burning, aching, Pain began One week ago Is continuous. Neuro: No deficits noted. Level of Consciousness is awake, alert, obeys commands, Oriented to person, place, time, situation, Appropriate for age. Cardiovascular: Reports chest pain, nausea, vomiting, Heart tones S1 S2 Capillary refill < 3 seconds. Respiratory: Reports cough that is productive, Pt stated, "sometimes when I cough its dry and sometimes is yellow thick chunks." "I feel really congested.". GI: Bowel sounds present X 4 quads. Abd is soft Reports diarrhea, nausea, vomiting. : No deficits noted. EENT: Reports difficulty swallowing nasal congestion nasal discharge that is yellow that is watery pain when swallowing. Derm: No deficits noted. Musculoskeletal: No deficits noted. Vital Signs: 08:40 BP 113 / 82; Pulse 100; Resp 17; Temp 98.2; Pulse Ox 100% on R/A; Weight 48.99 kg; ll1 Height 5 ft. 3 in. (160.02 cm); 09:00 BP 97 / 68; Pulse 88; Resp 17; Pulse Ox 100% on R/A; kg 09:50 BP 103 / 79; Pulse 85; Resp 20; Pulse Ox 100% on R/A; kg 10:15 BP 107 / 83; Pulse 86; Resp 18; Pulse Ox 100% on R/A; kg 08:40 Body Mass Index 19.13 (48.99 kg, 160.02 cm) ll1 ED Course: 08:31 Patient arrived in ED. bp1 08:34 Timbo Roy MD is Attending Physician. rn 08:39 Arm band placed on Patient placed in an exam room, on a stretcher. ll1 08:42 Triage completed. ll1 08:48 Eva Diehl is Primary Nurse. kg 08:57 XRAY Chest (1 view) In Process Unspecified. EDMS 09:08 Patient has correct armband on for positive identification. Bed in low position. Call kg light in reach. Side rails up X 1. 10:16 No provider procedures requiring assistance completed. Patient did not have IV access kg during this emergency room visit. Administered Medications: No medications were administered Outcome: 10:04 Discharge ordered by . rn 10:16 Discharged to home ambulatory. kg 10:16 Condition: good 10:16 Discharge instructions given to patient, Instructed on discharge instructions, follow up and referral plans. Demonstrated understanding of instructions, follow-up care. 10:17 Patient left the ED. kg Signatures: Dispatcher [employer] EDMS Timbo Roy MD MD rn Lewis, Lynsay, RN RN ll1 Emily Nayak bp1 Eva Diehl kg
--- NOTE | 2020-11-19 10:06 | EDPHYS ---
Physician Documentation [facility] Name: Mary Avina Age: 30 yrs Sex: Female : 1990 Arrival Date: 11/19/2020 Time: 08:31 Bed 14 Private MD: ED Physician Timbo Roy HPI: 11/19 08:46 This 30 yrs old Female presents to ER via Ambulatory with complaints of Covid rn Symptoms. 08:46 The patient or guardian reports cough. Onset: The symptoms/episode began/occurred 1 rn week(s) ago. Severity of symptoms: At their worst the symptoms were mild, in the emergency department the symptoms are unchanged. Modifying factors: The symptoms are alleviated by nothing, the symptoms are aggravated by nothing. Associated signs and symptoms: Pertinent positives: diarrhea, fever, rhinorrhea, sore throat. The patient has not experienced similar symptoms in the past. The patient has not recently seen a physician. 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 + smoker that states quit 2 weeks ago. No hemoptysis. Took home COVID test yesterday and was negative.. 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 - Social history:: Smoking status: Patient/guardian denies using tobacco, Stopped _ months ago .5 Smoking status: Reported history of juuling and/or vaping. Patient/guardian denies using tobacco, Stopped _ months ago 1. - Family history:: not pertinent. - Hospitalizations: : No recent hospitalization is reported. 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 Exam: 08:46 Constitutional: This is a well developed, well nourished patient who is awake, alert, rn and in no acute distress. Head/Face: Normocephalic, atraumatic. Eyes: Lids and lashes normal. Conjunctiva and sclera are non-icteric and not injected. Cornea within normal limits. Periorbital areas with no swelling, redness, or edema. ENT: No stridor Neck: Trachea midline, no thyromegaly or masses palpated, and no cervical lymphadenopathy. Supple, full range of motion without nuchal rigidity, or vertebral point tenderness. No Meningismus. Cardiovascular: Regular rate and rhythm. No pulse deficits. Respiratory: No increased work of breathing, no retractions or nasal flaring. Skin: Warm, dry MS/ Extremity: Pulses equal, no cyanosis. Neuro: Awake and alert, GCS 15, oriented to person, place, time, and situation. Vital Signs: 08:40 BP 113 / 82; Pulse 100; Resp 17; Temp 98.2; Pulse Ox 100% on R/A; Weight 48.99 kg; ll1 Height 5 ft. 3 in. (160.02 cm); 09:00 BP 97 / 68; Pulse 88; Resp 17; Pulse Ox 100% on R/A; kg 09:50 BP 103 / 79; Pulse 85; Resp 20; Pulse Ox 100% on R/A; kg 10:15 BP 107 / 83; Pulse 86; Resp 18; Pulse Ox 100% on R/A; kg 08:40 Body Mass Index 19.13 (48.99 kg, 160.02 cm) ll1 MDM: 08:34 Patient medically screened. rn 10:04 Differential Diagnosis: Influenza Upper Respiratory Infection Viral Syndrome Pneumonia. rn Data reviewed: vital signs, nurses notes, lab test result(s), radiologic studies, plain films, and as a result, I will discharge patient. Counseling: I had a detailed discussion with the patient and/or guardian regarding: the historical points, exam findings, and any diagnostic results supporting the discharge/admit diagnosis, lab results, radiology results, the need for outpatient follow up, to return to the emergency department if symptoms worsen or persist or if there are any questions or concerns that arise at home. Special discussion: I discussed with the patient/guardian in detail that at this point there is no indication for admission to the hospital. It is understood, however, that if the symptoms persist or worsen the patient needs to return immediately for re-evaluation. 11/19 08:41 Order name: Strep; Complete Time: 09:34 rn 11/19 08:41 Order name: XRAY Chest (1 view); Complete Time: 09:19 rn 11/19 09:35 Order name: Throat Culture EDMS 11/19 09:41 Order name: COVID-19/FLU A+B; Complete Time: 10:04 EDMS Administered Medications: No medications were administered Disposition: 11/19/20 10:04 Discharged to Home. Impression: Acute upper respiratory infection, unspecified. - Condition is Stable. - Discharge Instructions: Upper Respiratory Infection, Adult, Viral Respiratory Infection. - Medication Reconciliation Form, Thank You Letter, Antibiotic Education, Prescription Opioid Use form. - Follow up: Private Physician; When: As needed; Reason: Recheck today's complaints, Re-evaluation by your physician. - Problem is new. - Symptoms have improved. Signatures: Dispatcher [employer] EDRI Timbo Roy MD MD rn Lewis, Lynsay, RN RN ll1 Eva Diehl kg Corrections: (The following items were deleted from the chart) 08:58 08:42 Influenza Screen (A \T\ B)+BA.LAB.BRZ ordered. [facility] 08:58 08:42 CORONAVIRUS+MR.LAB.BRZ ordered. [facility] 10:17 10:04 11/19/2020 10:04 Discharged to Home. Impression: Acute upper respiratory kg infection, unspecified. Condition is Stable. Forms are Medication Reconciliation Form, Thank You Letter, Antibiotic Education, Prescription Opioid Use. Follow up: Private Physician; When: As needed; Reason: Recheck today's complaints, Re-evaluation by your physician. Problem is new. Symptoms have improved. rn
[2020-11-19 10:23] VITALS: TEMP 98.2; O2SAT 100
[2020-11-19 10:28] VITALS: BP 107/83
== END 2020-11-19 10:17 | disposition home or self-care (01) ==
LOC: ER 08:27
DX: J06.9 Acute upper respiratory infection, unspecified (principal); Z20.822 Contact with and (suspected) exposure to COVID-19
CPT/HCPCS: 0240U; 71045; 87070; 87081; 99283

== ENCOUNTER 2021-06-23 17:29 | Emergency (ER) | payer SELFPAY ==
--- NOTE | 2021-06-23 19:37 | ER ---
Nurse's Notes [facility] Name: Mary Avina Age: 30 yrs Sex: Female : 1990 Arrival Date: 06/23/2021 Time: 17:31 Bed 10 Private MD: Diagnosis: Asthmatic bronchitis Presentation: 06/23 19:25 Chief complaint: Patient states: Fever, SOB, N/V/D, no appetite, chest pains since ll1 06/19. Fever 101.8 at home. Coronavirus screen: Vaccine status: Patient reports being unvaccinated. Client denies travel out of the [place] in the last 14 days. chills, diarrhea, fatigue, fever, nausea, vomiting. Ebola Screen: Patient denies travel to an Ebola-affected area in the 21 days before illness onset. Initial Sepsis Screen: Does the patient meet any 2 criteria? No. Patient's initial sepsis screen is negative. Does the patient have a suspected source of infection? Yes: Productive cough/pneumonia. Risk Assessment: Do you want to hurt yourself or someone else? Patient reports no desire to harm self or others. Onset of symptoms was June 19, 2021. 19:25 Method Of Arrival: Ambulatory ll1 19:25 Acuity: VIANNEY 3 ll1 Historical: - Allergies: 19:24 No Known Allergies; ll1 - PMHx: 19:24 Anxiety; Bronchitis; Depression; ll1 - PSHx: 19:24 section; tubes tied; ll1 - Immunization history:: Client reports having NOT received the Covid vaccine. Flu vaccine status is unknown. - Social history:: Smoking status: Reported history of juuling and/or vaping. Assessment: 06/24 01:04 Reassessment: Patient is alert, oriented x 3, equal unlabored respirations, skin bb warm/dry/pink. Cardiovascular: Capillary refill < 3 seconds Patient's skin is warm and dry. Respiratory: Respiratory effort is even, unlabored, Respiratory pattern is regular. GI: No signs and/or symptoms were reported involving the gastrointestinal system. Derm: Skin is pink, warm \T\ dry. Musculoskeletal: Circulation, motion, and sensation intact. 02:55 Reassessment: Patient is alert, oriented x 3, equal unlabored respirations, skin bb warm/dry/pink. pt verbalized understanding of and agrees to plan of care discharge instructions given pt ambulated with steady gait to exit accompanied by family. Vital Signs: 06/23 19:25 BP 131 / 95; Pulse 86; Resp 16; Temp 98.5; Pulse Ox 98% ; Weight 55.79 kg; Height 5 ft. ll1 3 in. (160.02 cm); Pain 5/10; 06/24 01:03 BP 117 / 88; Pulse 83; Resp 18 S; Temp 98.2(TE); Pulse Ox 100% on R/A; bb 02:47 BP 142 / 79; Pulse 106; Resp 18; cs9 06/23 19:25 Body Mass Index 21.79 (55.79 kg, 160.02 cm) 1 ED Course: 06/23 17:31 Patient arrived in ED. ds1 19:24 Arm band placed on. 1 19:28 Triage completed. 1 19:36 Patient's name was called from ER lobby. No response. Unable to locate patient. Will jh5 disposition as left without being seen by a provider. 06/24 01:09 Leroy Ramsey MD is Attending Physician. pkberenice 02:04 XRAY Chest (1 view) In Process Unspecified. EDMS 02:55 Dee Rose, KRYSTINA is Primary Nurse. bb Administered Medications: 02:00 Drug: Albuterol - atroVENT (ipratropium) (3:1) (2.5 mg - 0.5 mg) 3 ml Route: Nebulizer; bb 02:56 Follow up: Response: No adverse reaction bb 02: Drug: Zithromax (azithromycin) 500 mg Route: PO; bb 02:56 Follow up: Response: No adverse reaction bb Outcome: 06/23 19:36 Patient left the ED. jh5 06/24 02:12 Discharge ordered by . pkl 02:56 Discharged to home ambulatory, with family. bb 02:56 Condition: stable 02:56 Discharge instructions given to patient, Instructed on discharge instructions, follow up and referral plans. medication usage, Demonstrated understanding of instructions, follow-up care, medications, Prescriptions given X 2. 02:57 Patient left the ED. bb Signatures: Dispatcher [employer] EDMS Leroy Ramsey MD MD pkl Sanford, Demi ds1 Dee Rose, Yovanny Lundy RN, RN RN 1 Nikki Zavala cs9 Huyen Durán RN RN jh5
[2021-06-24 01:51] LABS: SARS-COV-2 RT PCR NEGATIVE (NEGATIVE)
[2021-06-24] MEDS ORDERED: ALBUTEROL 2.5 MG/3 ML NEB SOL ONE (01:59)
[2021-06-24] MEDS ORDERED: IPRATROPIUM BROM 0.5MG/2.5ML ONE (01:59)
--- NOTE | 2021-06-24 02:13 | EDPHYS ---
Physician Documentation [facility] Name: Mary Avina Age: 30 yrs Sex: Female : 1990 Arrival Date: 06/23/2021 Time: 17:31 Bed 10 Private MD: ED Physician Leroy Ramsey HPI: 06/24 01:52 This 30 yrs old Female presents to ER via Ambulatory with complaints of Fever, pkl Shortness Of Breath, Nausea. 01:52 The patient or guardian reports cough, described as moderate, with no sputum. Onset: pkl The symptoms/episode began/occurred 4 day(s) ago. Associated signs and symptoms: Pertinent positives: chest pain, fever. Historical: - Allergies: 06/23 19:24 No Known Allergies; ll1 - PMHx: 19:24 Anxiety; Bronchitis; Depression; ll1 - PSHx: 19:24 section; tubes tied; ll1 - Immunization history:: Client reports having NOT received the Covid vaccine. Flu vaccine status is unknown. - Social history:: Smoking status: Reported history of juuling and/or vaping. ROS: 06/24 01:52 Eyes: Negative for injury, pain, redness, and discharge, ENT: Negative for injury, pkl pain, and discharge, Neck: Negative for injury, pain, and swelling, Cardiovascular: Negative for chest pain, palpitations, and edema. Respiratory: Positive for cough, with no reported sputum, shortness of breath, at rest. wheezing. Abdomen/GI: Negative for abdominal pain, nausea, vomiting, and diarrhea. Back: Negative for acute changes. : Negative for urinary symptoms. MS/extremity: Negative for acute changes. Skin: Negative for rash. Neuro: Negative for altered mental status, loss of consciousness. Exam: 01:52 Head/Face: Normocephalic, atraumatic. Eyes: Pupils equal round and reactive to light, pkl extra-ocular motions intact. Lids and lashes normal. Conjunctiva and sclera are non-icteric and not injected. Cornea within normal limits. Periorbital areas with no swelling, redness, or edema. ENT: Nares patent. No nasal discharge, no septal abnormalities noted. Tympanic membranes are normal and external auditory canals are clear. Oropharynx with no redness, swelling, or masses, exudates, or evidence of obstruction, uvula midline. Mucous membranes moist. Neck: Trachea midline, no thyromegaly or masses palpated, and no cervical lymphadenopathy. Supple, full range of motion without nuchal rigidity, or vertebral point tenderness. No Meningismus. Chest/axilla: Normal chest wall appearance and motion. Nontender with no deformity. No lesions are appreciated. Cardiovascular: Regular rate and rhythm with a normal S1 and S2. No gallops, murmurs, or rubs. Normal PMI, no JVD. No pulse deficits. 01:52 Respiratory: the patient does not display signs of respiratory distress, Respirations: normal, Breath sounds: bronchial sounds, that are mild, rhonchi, are scattered. 01:52 Abdomen/GI: Bowel sounds: normal, Palpation: abdomen is soft and non-tender, in all quadrants. 01:52 Back: Exam negative for acute changes. 01:52 : Exam negative for acute changes. 01:52 Musculoskeletal/extremity: Exam is negative for acute changes. 01:52 Skin: Exam negative for rash. 01:52 Neuro: Exam negative for acute changes, Mentation: is normal, Cranial nerves: grossly normal, Motor: is normal. Vital Signs: 06/23 19:25 BP 131 / 95; Pulse 86; Resp 16; Temp 98.5; Pulse Ox 98% ; Weight 55.79 kg; Height 5 ft. ll1 3 in. (160.02 cm); Pain 5/10; 06/24 01:03 BP 117 / 88; Pulse 83; Resp 18 S; Temp 98.2(TE); Pulse Ox 100% on R/A; bb 02:47 BP 142 / 79; Pulse 106; Resp 18; cs9 06/23 19:25 Body Mass Index 21.79 (55.79 kg, 160.02 cm) ll1 MDM: 01:09 Patient medically screened. pkl 02:11 Data reviewed: vital signs, nurses notes, lab test result(s), radiologic studies. pkl 06/24 01:03 Order name: COVID-19/FLU A+B/RSV (Document "Date of Onset" if Symptomatic); Complete bb Time: 02:04 06/24 01:02 Order name: XRAY Chest (1 view) bb Administered Medications: 02:00 Drug: Albuterol - atroVENT (ipratropium) (3:1) (2.5 mg - 0.5 mg) 3 ml Route: Nebulizer; bb 02:56 Follow up: Response: No adverse reaction bb 02:27 Drug: Zithromax (azithromycin) 500 mg Route: PO; bb 02:56 Follow up: Response: No adverse reaction bb Disposition Summary: 06/24/21 02:12 Discharge Ordered Location: Home pkl Problem: new pkl Symptoms: have improved pkl Condition: Stable pkl Diagnosis - Asthmatic bronchitis pkl Followup: pkl - With: Private Physician - When: 2 - 3 days - Reason: Re-evaluation by your physician Discharge Instructions: - Discharge Summary Sheet pkl Forms: - Medication Reconciliation Form pkl - Thank You Letter pkl - Antibiotic Education pkl - Prescription Opioid Use pkl Prescriptions: - albuterol sulfate 90 mcg/actuation Inhalation HFA aerosol inhaler - inhale 1 puff by INHALATION route every 6 hours; 1 puff; Refills: 0, Product pkl Selection Permitted - Zithromax Z-Isaiah 250 mg Oral Tablet - take 1 tablet by ORAL route as directed for 5 days Day 1 - take two (2) tablets pkl one time. Day 2, 3, 4 , 5 take one (1) tablet once daily.; 6 tablet; Refills: 0, Product Selection Permitted Signatures: Dispatcher [employer] Leroy Pinedo MD MD pkl Ballard, Brenda RN RN Yovanny Moya RN RN ll1 Huyen Durán RN RN 5 Corrections: (The following items were deleted from the chart) 01:41 06/23 19:36 before being seen by provider Fatou pollard 06/24 01:41 06/23 19:36 wait time [facility]
[2021-06-24] MEDS ORDERED: AZITHROMYCIN 250 MG TAB ONE (02:30)
[2021-06-24 03:01] VITALS: TEMP 98.2; O2SAT 100
[2021-06-24 03:02] VITALS: BP 142/79
--- NOTE | 2021-06-24 08:31 | RAD REPORT ---
EXAM DESCRIPTION: RAD - Chest Single View - 06/24/2021 2:04 am CLINICAL HISTORY: CHEST PAIN Chest pain. COMPARISON: Chest Single View dated 11/19/2020 FINDINGS: Portable technique limits examination quality. The lungs are grossly clear. The heart is normal in size. No displaced fractures. IMPRESSION: No acute intrathoracic process suspected.
== END 2021-06-24 02:57 | disposition home or self-care (01) ==
LOC: ER 17:29
DX: J45.909 Unspecified asthma, uncomplicated (principal); Z20.822 Contact with and (suspected) exposure to COVID-19
CPT/HCPCS: 0241U; 71045; 94640; 99284

== ENCOUNTER 2021-07-22 13:23 | Emergency (ER) | payer SELFPAY ==
[2021-07-22] MEDS ORDERED: ACETAMINOPHEN 500 MG TAB ONE (14:13)
[2021-07-22 15:16] LABS: SARS-COV-2 RT PCR POSITIVE (NEGATIVE)
--- NOTE | 2021-07-22 15:43 | ER ---
Nurse's Notes [facility] Name: Mary Avina Age: 30 yrs Sex: Female : 1990 Arrival Date: 07/22/2021 Time: 13:27 Bed 12 Private MD: Diagnosis: SARS-associated coronavirus as the cause of diseases classified elsewhere Presentation: 07/22 13:52 Chief complaint: Patient states: Pt presents to ed via pov for c/o congestion, headache ab2 and sore throat. Pt states she thinks she has covid. Coronavirus screen: Vaccine status: Patient reports being unvaccinated. Client denies travel out of the [place] in the last 14 days. congestion, headache, sore throat, Client presents with at least one sign or symptom that may indicate coronavirus-19. Standard/surgical mask placed on the client. Provider contacted for isolation considerations. Ebola Screen: Patient negative for fever greater than or equal to 101.5 degrees Fahrenheit, and additional compatible Ebola Virus Disease symptoms Patient denies exposure to infectious person. Patient denies travel to an Ebola-affected area in the 21 days before illness onset. No symptoms or risks identified at this time. Initial Sepsis Screen: Does the patient meet any 2 criteria? No. Patient's initial sepsis screen is negative. Does the patient have a suspected source of infection? No. Patient's initial sepsis screen is negative. Risk Assessment: Do you want to hurt yourself or someone else? Patient reports no desire to harm self or others. Onset of symptoms is unknown. 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 - Social history:: Smoking status: unknown. Screenin:59 Abuse screen: Denies threats or abuse. Denies injuries from another. Nutritional ab2 screening: No deficits noted. Tuberculosis screening: No symptoms or risk factors identified. Fall Risk None identified. Assessment: 13:58 General: Appears in no apparent distress. comfortable, Behavior is calm, cooperative, ab2 appropriate for age. Pain: Complains of pain in face Pain currently is 7 out of 10 on a pain scale. Quality of pain is described as aching. Neuro: Level of Consciousness is awake, alert, obeys commands, Oriented to person, place, time, situation, Appropriate for age Tower Equipment Repairer are equal bilaterally Moves all extremities. Gait is steady, Speech is normal, Facial symmetry appears normal, Reports headache. Cardiovascular: No deficits noted. Denies chest pain, shortness of breath, Heart tones S1 S2 present Patient's skin is warm and dry. Chest pain is denied. Respiratory: No deficits noted. Reports cough that is Airway is patent Breath sounds are clear bilaterally. Denies shortness of breath. GI: No deficits noted. No signs and/or symptoms were reported involving the gastrointestinal system. : No deficits noted. No signs and/or symptoms were reported regarding the genitourinary system. EENT: No deficits noted. No signs and/or symptoms were reported regarding the EENT system. Derm: No deficits noted. No signs and/or symptoms reported regarding the dermatologic system. Vital Signs: 13:52 BP 124 / 91; Pulse 81; Resp 16; Temp 97.9; Pulse Ox 100% on R/A; Weight 55.79 kg; ab2 Height 5 ft. 3 in. (160.02 cm); Pain 4/10; 13:52 Body Mass Index 21.79 (55.79 kg, 160.02 cm) ab2 ED Course: 13:27 Patient arrived in ED. am2 13:36 Jeovany Palacios PA is PHCP. cp 13:36 Jacqui Cotton MD is Attending Physician. cp 13:51 Jose Hodge is Primary Nurse. ab2 13:53 Triage completed. ab2 14:00 Patient has correct armband on for positive identification. Bed in low position. Call ab2 light in reach. Side rails up X2. Adult w/ patient. 14:00 Arm band placed on right wrist. ab2 14:00 No provider procedures requiring assistance completed. ab2 14:12 COVID-19/FLU A+B/RSV (Document "Date of Onset" if Symptomatic) Sent. ab2 14:12 Strep Sent. ab2 16:00 Patient did not have IV access during this emergency room visit. iw Administered Medications: 14:12 Drug: Tylenol 1000 mg Route: PO; ab2 Outcome: 15:42 Discharge ordered by . abi 16:00 Discharged to home ambulatory. iw 16:00 Discharged to 16:00 Condition: good 16:00 Discharge instructions given to patient, Instructed on discharge instructions, follow up and referral plans. Demonstrated understanding of instructions, follow-up care. 16:01 Patient left the ED. iw Signatures: Christa Colon RN RN iw Jeovany aPlacios PA PA cp Moreno, Amanda am2 Jose Hodge ab2
--- NOTE | 2021-07-22 15:43 | EDPHYS ---
Physician Documentation [facility] Name: Mary Avina Age: 30 yrs Sex: Female : 1990 Arrival Date: 07/22/2021 Time: 13:27 Bed 12 Private MD: ED Physician Jacqui Cotton HPI: 07/22 14:15 This 30 yrs old Female presents to ER via Ambulatory with complaints of r/o covid. cp 14:15 The patient or guardian reports sinus congestion, sore throat, headache. Onset: The cp symptoms/episode began/occurred today. Associated signs and symptoms: Pertinent negatives: chest pain, diarrhea, fever, vomiting. Severity of symptoms: in the emergency department the symptoms are unchanged despite home interventions. 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 - Social history:: Smoking status: unknown. ROS: 14:20 Constitutional: Negative for fever, poor PO intake. cp 14:20 Eyes: Negative for injury, pain, redness, and discharge. cp 14:20 ENT: Positive for sinus congestion, sore throat, Negative for drainage from ear(s), ear pain, difficulty swallowing, difficulty handling secretions. 14:20 Respiratory: Negative for cough, shortness of breath, wheezing. 14:20 Abdomen/GI: Negative for nausea, vomiting, diarrhea, constipation. 14:20 Skin: Negative for rash. 14:20 Neuro: Positive for headache. 14:20 All other systems are negative. Exam: 14:25 Constitutional: The patient appears in no acute distress, alert, awake, non-toxic, well cp developed, well nourished. 14:25 Head/Face: Normocephalic, atraumatic. cp 14:25 Eyes: Periorbital structures: appear normal, Conjunctiva: normal, no exudate, no injection, Lids and lashes: appear normal, bilaterally. 14:25 ENT: External ear(s): are unremarkable, Nose: is normal, Mouth: Lips: moist, Oral mucosa: moist, Posterior pharynx: Airway: no evidence of obstruction, patent, Tonsils: with erythema, no enlargement, no exudate, erythema, that is mild, exudate, is not appreciated. 14:25 Neck: ROM/movement: is normal, is supple, without pain, no range of motions limitations, no meningismus, Lymph nodes: no appreciated lymphadenopathy. 14:25 Chest/axilla: Inspection: normal. 14:25 Cardiovascular: Rate: normal. 14:25 Respiratory: the patient does not display signs of respiratory distress, Respirations: normal, no use of accessory muscles, no retractions, labored breathing, is not present, Breath sounds: are clear throughout, no decreased breath sounds, no stridor, no wheezing. 14:25 Abdomen/GI: Exam negative for discomfort, distension, guarding, Inspection: abdomen appears normal. 14:25 Skin: no rash present. Vital Signs: 13:52 BP 124 / 91; Pulse 81; Resp 16; Temp 97.9; Pulse Ox 100% on R/A; Weight 55.79 kg; ab2 Height 5 ft. 3 in. (160.02 cm); Pain 4/10; 13:52 Body Mass Index 21.79 (55.79 kg, 160.02 cm) ab2 MDM: 13:50 Patient medically screened. cp 15:41 Data reviewed: vital signs, nurses notes, lab test result(s), and as a result, I will cp discharge patient. 15:41 Differential diagnosis: bronchitis, flu, URI, COVID-19. Counseling: I had a detailed cp discussion with the patient and/or guardian regarding: the historical points, exam findings, and any diagnostic results supporting the discharge/admit diagnosis, lab results, to return to the emergency department if symptoms worsen or persist or if there are any questions or concerns that arise at home. 07/22 14:02 Order name: COVID-19/FLU A+B/RSV (Document "Date of Onset" if Symptomatic); Complete cp Time: 15:30 07/22 15:30 Interpretation: Reviewed. cp 07/22 14:02 Order name: Strep; Complete Time: 15:30 cp 07/22 14:38 Order name: Throat Culture EDMS Administered Medications: 14:12 Drug: Tylenol 1000 mg Route: PO; ab2 Disposition Summary: 07/22/21 15:42 Discharge Ordered Location: Home cp Problem: new cp Symptoms: are unchanged cp Condition: Stable cp Diagnosis - SARS-associated coronavirus as the cause of diseases classified elsewhere cp Followup: cp - With: Private Physician - When: 2 - 3 days - Reason: Worsening of condition Discharge Instructions: - Discharge Summary Sheet cp - Aspirin and Your Heart cp - COVID-19 cp - Things to Know about the COVID-19 Pandemic - [facility] cp - 10 Things You Can Do to Manage Your COVID-19 Symptoms at Home - [facility] cp - COVID-19: Quarantine vs. Isolation - [facility] cp - Prevent the Spread of COVID-19 if You Are Sick - [facility] cp Forms: - Medication Reconciliation Form cp - Thank You Letter cp - Antibiotic Education cp - Prescription Opioid Use cp Addendum: 07/24/2021 09:03 Co-signature as Attending Physician, Jacqui Cotton MD I agree with the assessment and s p3 plan of care. Signatures: Dispatcher [employer] EDMS Jeovany Palacios PA PA cp Jacqui Cotton MD MD sp3 Jose Hodge ab2
[2021-07-22 16:18] VITALS: BP 124/91; TEMP 97.9; O2SAT 100
== END 2021-07-22 16:01 | disposition home or self-care (01) ==
LOC: ER 13:23
DX: U07.1 COVID-19 (principal); F32.A Depression, unspecified
CPT/HCPCS: 0241U; 87070; 87081; 99283